=== PATIENT | female | born 1965 | race Caucasian/White ===

== ENCOUNTER 2017-01-05 10:29 | Outpatient (CLI) | payer MEDICAID, MEDICARE ==
[2017-01-05 11:42] LABS: ALT (SGPT) 36 U/L (8-55); AST (SGOT) 47 U/L (5-34); Albumin 3.7 g/dL (3.5-5.0); Alkaline Phosphatase 102 U/L (40-150); Anion Gap 14 mmol/L (10-20); BUN (Urea Nitrogen) 7 mg/dL (9.8-20.1); Bilirubin, Total 0.3 mg/dL (0.2-1.2); Calc. Creatinine Clearance 0 mL/min (70-130); Calcium 9.9 mg/dL (7.8-10.44); Carbon Dioxide 27 mmol/L (22-29); Cardiac Risk 3.6 (Less than 4.5); Chloride 102 mmol/L (98-107); Cholesterol 142 mg/dl (< 200 Desired); Estimated GFR-MDRD 72; Globulin 4.4 g/dL (2.4-3.5); Glucose 94 mg/dL (70-105); HDL Cholesterol 40 mg/dL (>60 Neg Risk); LDL Cholesterol, Calculated 72 mg/dL; Potassium 5.9 mmol/L (3.5-5.1); Protein, Total 8.1 g/dL (6.0-8.3); Sodium 137 mmol/L (136-145); Triglycerides 150 mg/dL (Less than 150)
[2017-01-05 12:06] LABS: Band 1 % (5-11); Eosinophils 11 % (0-10); Hemoglobin 14.5 g/dL (12.0-16.0); Lymphocytes 45 % (21-51); MDiff Complete? YES; Mean Corpuscular HGB CONC 32.6 g/dL (32.0-36.0); Mean Corpuscular Hemoglobin 31.1 pg (27.0-31.0); Mean Corpuscular Volume 95.3 fl (81.0-99.0); Mean Platelet Volume 9.3 fL (7.4-10.4); Monocytes 1 % (0-10); Neutrophil 42 % (42-75); PLT Morphology Comment Appears Increased; Platelet Count 402 thou/uL (130-400); RBC Distribution Width 12.5 % (11.5-14.5); Red Blood Cell (RBC) Count 4.67 mill/uL (4.20-5.40); White Blood Cell (WBC) Count 12.3 thou/uL (4.8-10.8)
== END 2017-01-05 10:30 | disposition home or self-care (01) ==
LOC: MADLABBHPM 10:29
PROVIDERS: ATTEND Family Medicine
DX: Z00.00 Encounter for general adult medical examination without abnormal findings (principal)
CPT/HCPCS: 36415; 80053; 80061; 84443; 85025

== ENCOUNTER 2017-01-12 08:23 | Outpatient (CLI) | payer MEDICARE ==
[2017-01-12 09:29] LABS: Anion Gap 15 mmol/L (10-20); BUN (Urea Nitrogen) 8 mg/dL (9.8-20.1); Calc. Creatinine Clearance 0 mL/min (70-130); Calcium 9.9 mg/dL (7.8-10.44); Carbon Dioxide 25 mmol/L (22-29); Chloride 102 mmol/L (98-107); Estimated GFR-MDRD 65; Glucose 105 mg/dL (70-105); Sodium 137 mmol/L (136-145)
[2017-01-12 10:05] LABS: Band 1 % (5-11); Eosinophils 2 % (0-10); Hemoglobin 14.7 g/dL (12.0-16.0); Lymphocytes 50 % (21-51); MDiff Complete? YES; Mean Corpuscular HGB CONC 33.7 g/dL (32.0-36.0); Mean Corpuscular Volume 94.9 fl (81.0-99.0); Mean Platelet Volume 9.2 fL (7.4-10.4); Monocytes 7 % (0-10); Neutrophil 40 % (42-75); PLT Morphology Comment Appears Increased; Platelet Count 401 thou/uL (130-400); RBC Distribution Width 12.4 % (11.5-14.5); RBC Morphology Normal; White Blood Cell (WBC) Count 14.6 thou/uL (4.8-10.8)
[2017-01-12 17:37] LABS: HIV (1/2) Antibody/Antigen Non-Reactive (NonReactive); HIV 1/2 INDEX 0.19 S/CO (<1.00)
== END 2017-01-12 08:24 | disposition home or self-care (01) ==
LOC: MADLABBHPM 08:23
PROVIDERS: ATTEND Family Medicine
DX: E78.5 Hyperlipidemia, unspecified (principal); D72.829 Elevated white blood cell count, unspecified
CPT/HCPCS: 36415; 80048; 85007; 85027; 85060; 87389

== ENCOUNTER 2017-06-25 11:13 | Outpatient (CLI) | payer MEDICARE, MEDICAID ==
[2017-06-25 11:57] LABS: ALT (SGPT) 43 U/L (8-55); AST (SGOT) 47 U/L (5-34); Albumin 3.7 g/dL (3.5-5.0); Alkaline Phosphatase 165 U/L (40-150); Anion Gap 15 mmol/L (10-20); BUN (Urea Nitrogen) 10 mg/dL (9.8-20.1); Bilirubin, Total 0.5 mg/dL (0.2-1.2); Calc. Creatinine Clearance 0 mL/min (70-130); Calcium 10.2 mg/dL (7.8-10.44); Carbon Dioxide 26 mmol/L (22-29); Chloride 99 mmol/L (98-107); Estimated GFR-MDRD 70; Globulin 4.8 g/dL (2.4-3.5); Glucose 79 mg/dL (70-105); Potassium 4.3 mmol/L (3.5-5.1); Protein, Total 8.5 g/dL (6.0-8.3); Sodium 136 mmol/L (136-145)
[2017-06-25 12:40] LABS: Hemoglobin 13.4 g/dL (12.0-16.0); Mean Corpuscular HGB CONC 31.6 g/dL (32.0-36.0); Mean Platelet Volume 10.8 fL (7.4-10.4); Platelet Count 553 thou/uL (130-400); RBC Distribution Width 12.4 % (11.5-14.5); Red Blood Cell (RBC) Count 4.48 mill/uL (4.20-5.40); White Blood Cell (WBC) Count 14.6 thou/uL (4.8-10.8)
[2017-06-25 12:50] LABS: Band 1 % (5-11); Eosinophils 3 % (0-10); Lymphocytes 45 % (21-51); MDiff Complete? YES; Manual Diff?? YES; Monocytes 4 % (0-10); Neutrophil 42 % (42-75); Reactive Lymphocytes 5 % (0-10)
[2017-06-25 12:51] LABS: Anisocytosis SLIGHT = 6-15 cells (100X) (0-5/hpf); PLT Morphology Comment Appears Increased
== END 2017-06-25 11:14 | disposition home or self-care (01) ==
LOC: MADLABBHPM 11:13
PROVIDERS: ATTEND Family Medicine
DX: B18.2 Chronic viral hepatitis C (principal)
CPT/HCPCS: 36415; 80053; 85025

== ENCOUNTER 2017-06-26 16:02 | Outpatient (CLI) | payer MEDICARE, MEDICAID ==
[~2017-06-26 16:02] MED LIST: Iopamidol 370 76% 100 ML VIAL ONE
--- NOTE | 2017-06-26 20:53 | CT ---
CT OF THE ABDOMEN WITH IV CONTRAST: 06/26/17 INDICATION: History of intermittent epigastric abdominal pain just below the sternum ongoing for three months. COMPARISON: None. FINDINGS: There is surgical harsha involving the upper anterior abdominal wall. There is a small fat containi ng anterior abdominal wall hernia on image 44 of series 2. There is a 6.6 cm mass within the left lower lobe. There is a 1.1 cm epicardial lymph node seen anterior to the right ventricle. There is a 1.4 cm epic ardial lymph node seen adjacent to left ventricular apex. There is a 2.6 cm pericardial cyst along t he right heart border. There is cirrhotic morphology of the liver. The spleen is surgically absent. There are mild varicosi ties within the left upper quadrant of the abdomen and within the paraesophageal region. There are n umerous enlarged lymph nodes within the gastrohepatic and janie hepatis region. One of the largest i s seen within the periportal region measuring 2 cm. The pancreas appears within normal limits. The r ight kidney is malrotated. The left kidney is normal appearing. The adrenal glands are normal appear ing. There is a circumaortic left renal vein. There is moderate calcification involving the abdomina l aorta. The visualized unopacified small and large bowel are within normal limits. There is scatter ed degenerative and osteoarthritic change. IMPRESSION: 1. Left lower lobe mass suspicious for malignancy. 2. Nonspecific enlarged lymph nodes within the epicardial region of the lower thorax, gastrohep atic, periportal and portal hepatis regions. 3. Cirrhotic morphology of the liver. 4. Splenectomy. 5. Would recommend a dedicated CT of the chest, abdomen and pelvis with IV contrast. This would have to occur following a 24 hour wait period as the patient did receive a full contrast bolus. Thi s would provide a full whole body survey to evaluate extent of possible primary and metastatic disea se. This can be performed as an outpatient. POS: [facility]
== END 2017-06-26 16:03 | disposition home or self-care (01) ==
LOC: MADRAD 16:02
PROVIDERS: ATTEND Family Medicine
DX: R10.13 Epigastric pain (principal); R91.8 Other nonspecific abnormal finding of lung field; R59.0 Localized enlarged lymph nodes; K74.60 Unspecified cirrhosis of liver; Z90.49 Acquired absence of other specified parts of digestive tract
CPT/HCPCS: 74160

== ENCOUNTER 2017-06-28 11:16 | Outpatient (CLI) | payer MEDICARE, MEDICAID ==
--- NOTE | 2017-06-28 17:02 | CT ---
CT CHEST WITH CONTRAST CT ABDOMEN WITH CONTRAST CT PELVIS WITH CONTRAST: Date: 06/28/17 HISTORY: Lung mass. COMPARISON: None. FINDINGS: There is a mass in the left lower lobe measuring 7.8 x 5.6 x 6.5 cm with enhancement. There is also a mass in the right upper lobe measuring 1.0 x 2.3 x 1.2 cm with enhancement in lobular border. Ther e is some atelectatic change in the lingula. No pneumothorax. No effusion. There are metastatic lymph nodes in the prevascular space, as well as of the right anterior tracheal region. There is also a metastatic lymph node in the right pericardio phrenic space. Another metastatic lymph node in the left pericardiophrenic space is present. This me asures 1.5 cm. The right pericardiophrenic lymph node measures 2.5 cm. No free intraperitoneal gas or fluid. Mild prominence of the common bile duct measuring 1.5 cm. There are abnormal santos hepatis lymph nodes, as well as anterior perirenal space lymph nodes. Anter ior perirenal space lymph node, series 2, image 62, measures up to 13.0 mm in short axis. Santos hepa tis lymph nodes measures up to 1.7 cm in short axis. Kidneys are unremarkable. No hydronephrosis. Moderate diverticular disease sigmoid colon without act jocelyn inflammation. Fat-containing ventral hernia. No displaced rib fracture. No suspicious lytic or blastic lesions of the skeleton. Evidence of old injury of the posterolateral left 11th rib. IMPRESSION: 1. Findings suggestive of a primary lung malignancy in the left lower lobe, size as above. There is metastatic mediastinal adenopathy, as well as a secondary likely satellite nodule in the right uppe r lobe. There are metastatic lymph nodes also involving the right and left cardiophrenic angles. 2. Abnormally enlarged santos hepatic and anterior pararenal space lymph nodes. These have a differe nt enhancement pattern as the metastatic lymph nodes of the mediastinum. PET CT may be beneficial in this patient. Histologic evaluation of the left lower lobe mass is recommended. Pulmonology and onc ologic consultation recommended. 3. There is a hypodensity of the interpolar anterior cortex right kidney measuring 1.0 cm and fluid attenuation. This is suggestive of a cyst. 4. Mildly nodular contour of the liver suggests cirrhosis. The liver, however, is enlarged. POS: [facility]
== END 2017-06-28 11:17 | disposition home or self-care (01) ==
LOC: MADCT 11:16
PROVIDERS: ATTEND Family Medicine
DX: R91.8 Other nonspecific abnormal finding of lung field (principal); N28.89 Other specified disorders of kidney and ureter; K76.89 Other specified diseases of liver
CPT/HCPCS: 71260; 74177

== ENCOUNTER 2017-08-18 12:45 | Emergency (ER) | payer MEDICARE, MEDICAID ==
[2017-08-18] MEDS ORDERED: Iopamidol 370 76% 125 ML VIAL FS ONE (12:52)
[2017-08-18] MEDS ORDERED: Sodium Chloride 0.9% 100 ML BAG ONE (12:52)
[2017-08-18] MEDS ORDERED: Ketorolac Tromethamine 30 MG/ML VIAL ONE (14:26)
[2017-08-18 14:54] LABS: ALT (SGPT) 67 U/L (8-55); AST (SGOT) 63 U/L (5-34); Albumin 3.4 g/dL (3.5-5.0); Alkaline Phosphatase 204 U/L (40-150); Anion Gap 20 mmol/L (10-20); BUN (Urea Nitrogen) 11 mg/dL (9.8-20.1); Bilirubin, Total 0.5 mg/dL (0.2-1.2); Calc. Creatinine Clearance 0 mL/min (70-130); Calcium 9.7 mg/dL (7.8-10.44); Carbon Dioxide 20 mmol/L (22-29); Chloride 101 mmol/L (98-107); Eosinophils 3 % (0-10); Estimated GFR-MDRD 81; Globulin 5.1 g/dL (2.4-3.5); Glucose 83 mg/dL (70-105); Hemoglobin 12.5 g/dL (12.0-16.0); Lymphocytes 10 % (21-51); MDiff Complete? YES; Mean Corpuscular HGB CONC 32.9 g/dL (32.0-36.0); Mean Corpuscular Hemoglobin 30.4 pg (27.0-31.0); Mean Corpuscular Volume 92.3 fl (81.0-99.0); Mean Platelet Volume 9.7 fL (7.4-10.4); Metamyelocyte 1 % (0-0); Monocytes 4 % (0-10); Myelocyte 1 % (0-0); Neutrophil 60 % (42-75); PLT Morphology Comment Appears Increased; Platelet Count 588 thou/uL (130-400); Potassium 4.5 mmol/L (3.5-5.1); Protein, Total 8.5 g/dL (6.0-8.3); RBC Distribution Width 12.4 % (11.5-14.5); RBC Morphology Normal; Reactive Lymphocytes 21 % (0-10); Red Blood Cell (RBC) Count 4.11 mill/uL (4.20-5.40); Sodium 136 mmol/L (136-145); White Blood Cell (WBC) Count 18.1 thou/uL (4.8-10.8)
[2017-08-18 14:56] LABS: CKMB 0.4 ng/mL (0-6.6); Troponin I Less than 0.010 ng/mL (< 0.028)
--- NOTE | 2017-08-18 15:29 | RAD ---
PA RADIOGRAPH OF CHEST AP AND OBLIQUE VIEWS OF LEFT RIBS: Date: 08/18/17 HISTORY: Chest and rib pain. FINDINGS: PA radiograph of the chest demonstrates a lobular mass in the left lung base, unchanged since the pre vious comparison radiograph from approximately 9 days earlier. No evidence of hemo or pneumothorax se en. AP and oblique views left ribs demonstrate no evidence of left rib fractures. No obvious lytic rib le sions seen. IMPRESSION: Left lung base mass. POS: [facility]
--- NOTE | 2017-08-18 16:13 | CT ---
CONTRAST ENHANCED CTA CHEST: Date: 08/18/17 HISTORY: 52-year-old with history of lung mass, dyspnea. TECHNIQUE: Contrast enhanced CTA of chest is performed. 2D and 3D reconstruction images performed on an [employer] 3D workstation. COMPARISON: 06/28/17. FINDINGS: Right upper lobe mass, as well as left lower lobe masses are stable and again visualized. There is an area of scarring or patchy density in the left upper lobe posterior lingular region. This is also st able. Coronary artery calcifications seen. Mediastinum demonstrates a right paratracheal mass measuri ng 2.1 x 2.7 cm. This was present on the patient's previous CT from June. No evidence of filling defects seen to suggest pulmonary emboli. There is some asymmetric enlargement of the left hepatic lobe concerning for possible liver metastati c disease. There is also some fullness seen in the caudate lobe of the liver. There also appears to be some nodular enhancement along the left posterior aspect of the diaphragm. IMPRESSION: 1. Multiple areas of pretracheal and anterior mediastinal metastatic lesions. 2. Multiple pulmonary parenchymal lesions. 3. No evidence of pulmonary emboli. POS: [facility]
== END 2017-08-18 16:15 | disposition home or self-care (01) ==
LOC: MADERS 12:45
DX: S29.011A Strain of muscle and tendon of front wall of thorax, initial encounter (principal); X58.XXXA Exposure to other specified factors, initial encounter
CPT/HCPCS: 71275; 80053; 82553; 83880; 84484; 85025; 85379; 93005; 96374; J1885; J7050

== ENCOUNTER 2017-09-26 17:21 | Emergency (ER) | payer MEDICARE, OTHER ==
[2017-09-26 18:06] LABS: Anion Gap 21 mmol/L (10-20); BUN (Urea Nitrogen) 10 mg/dL (9.8-20.1); CK (CPK) 21 U/L (29-168); Calc. Creatinine Clearance 0 mL/min (70-130); Calcium 9.4 mg/dL (7.8-10.44); Carbon Dioxide 17 mmol/L (22-29); Chloride 99 mmol/L (98-107); Estimated GFR-MDRD 80; Glucose 99 mg/dL (70-105); Potassium 4.3 mmol/L (3.5-5.1); Sodium 133 mmol/L (136-145)
[2017-09-26 18:10] LABS: Bilirubin Negative (Negative); Blood, Urine Trace (Negative); Glucose, Urine (Dipstick) Negative (Negative); Leukocyte Trace (Negative); Nitrite Negative (Negative); Protein, Urine (Dipstick) Negative (Neg-Trace); Urobilinogen 0.2 mg/dL (0.2-1.0)
[2017-09-26 18:12] LABS: Anisocytosis SLIGHT = 6-15 cells (100X) (0-5/hpf); Eosinophils 4 % (0-10); Hemoglobin 11.3 g/dL (12.0-16.0); Large Platelets SLIGHT; Lymphocytes 47 % (21-51); MDiff Complete? YES; Mean Corpuscular HGB CONC 32.8 g/dL (32.0-36.0); Mean Corpuscular Hemoglobin 30.5 pg (27.0-31.0); Mean Corpuscular Volume 92.9 fl (81.0-99.0); Mean Platelet Volume 11.5 fL (7.4-10.4); Monocytes 2 % (0-10); Neutrophil 47 % (42-75); PLT Morphology Comment Appears Increased; Platelet Count 550 thou/uL (130-400); RBC Distribution Width 12.7 % (11.5-14.5); White Blood Cell (WBC) Count 16.4 thou/uL (4.8-10.8)
[2017-09-26 18:12] LABS: Clarity Hazy (Clear)
[2017-09-26 18:13] LABS: Specific Gravity, Urine 1.008 (1.002-1.036)
[2017-09-26 18:16] LABS: Bacteria/HPF 1+ HPF (None Seen); RBC/HPF 0-3 HPF (0-3); Squamous Epithelial 0-3 HPF (0-3); WBC/HPF 0-3 HPF (0-3)
== END 2017-09-26 18:25 | disposition home or self-care (01) ==
LOC: MADERS 17:21
DX: I10 Essential (primary) hypertension (principal); Z71.1 Person with feared health complaint in whom no diagnosis is made; Z79.899 Other long term (current) drug therapy
CPT/HCPCS: 81003; 81015; 82550; 85025; 87086; 93005

== ENCOUNTER 2017-11-08 08:02 | Outpatient (CLI) | payer MEDICARE, OTHER ==
--- NOTE | 2017-11-08 09:14 | ULT ---
ULTRASOUND ABDOMEN: HISTORY: Upper abdominal mass. COMPARISON: PET CT 11/01/17. FINDINGS: The right kidney measures 10.9 x 3.7 x 5.6 cm without mass, hydronephrosis, or abnormal calcification s. The left kidney measures 10.5 x 4.2 x 4.6 cm without mass, hydronephrosis, or abnormal calcificat ions. Mild increased hepatic echotexture. No cholelithiasis. Common bile duct not well seen. IMPRESSION: 1. Mild increased hepatic echotexture suggests steatosis. 2. Normal appearance of the gallbladder. 3. Common bile duct not well visualized, although according to the technologist's notes measures les s than 3 mm. POS: [facility]
== END 2017-11-08 08:03 | disposition home or self-care (01) ==
LOC: MADULT 08:02
PROVIDERS: ATTEND Family Medicine
DX: R19.09 Other intra-abdominal and pelvic swelling, mass and lump (principal); R93.2 Abnormal findings on diagnostic imaging of liver and biliary tract
CPT/HCPCS: 76700

== ENCOUNTER 2017-12-18 11:50 | Outpatient (CLI) | payer MEDICARE, OTHER ==
[2017-12-18 12:43] LABS: ALT (SGPT) 45 U/L (8-55); AST (SGOT) 51 U/L (5-34); Albumin 3.5 g/dL (3.5-5.0); Alkaline Phosphatase 302 U/L (40-150); Anion Gap 18 mmol/L (10-20); BUN (Urea Nitrogen) 12 mg/dL (9.8-20.1); Bilirubin, Total 0.5 mg/dL (0.2-1.2); Calc. Creatinine Clearance 0 mL/min (70-130); Calcium 10.1 mg/dL (7.8-10.44); Chloride 103 mmol/L (98-107); Estimated GFR-MDRD 68; Globulin 5.4 g/dL (2.4-3.5); Glucose 75 mg/dL (70-105); Potassium 5.8 mmol/L (3.5-5.1); Protein, Total 8.9 g/dL (6.0-8.3); Sodium 137 mmol/L (136-145); Uric Acid 7.1 mg/dL (2.6-6.0)
[2017-12-18 13:13] LABS: Carbon Dioxide 22 mmol/L (22-29)
== END 2017-12-18 11:51 | disposition home or self-care (01) ==
LOC: MADLAB 11:50
PROVIDERS: ATTEND Internal Medicine Hematology & Oncology
DX: C34.12 Malignant neoplasm of upper lobe, left bronchus or lung (principal)
CPT/HCPCS: 36415; 80053; 83615; 84550

== ENCOUNTER 2017-12-20 09:32 | Outpatient (CLI) | payer MEDICARE, MEDICAID ==
--- NOTE | 2017-12-20 11:53 | CT ---
CT ABDOMEN AND PELVIS WITH ORAL AND IV CONTRAST: Date: 12/20/17 HISTORY: Lung cancer. Left upper quadrant mass. FINDINGS: Comparison made with exams of 06/28/17 and 06/26/17. There is mild residual density seen in the region of the left lower lobe lung mass noted on the previ ous studies. The right-sided pericardial cyst along the right heart border is stable. Right pericardi ophrenic and left pericardiophrenic lymph nodes are again seen and stable, measuring about 1.5 cm, re spectively. The patient is post splenectomy. Mild varicosities are seen in the left upper quadrant. Stable enlarg ement of the left lobe of the liver. No hepatic mass is seen. Mild nodular contour of the liver is lawrence ggestive of cirrhosis. The liver is diffusely enlarged. A small amount of fluid is seen along the sup erior anterior surface of the liver on the right. No calcified gallstones are seen. The common bile d uct measures about 1.0 cm in diameter. The pancreas, adrenal glands, and left kidney are normal. A 12 .0 mm right renal cyst is stable. The 12.0 mm janie hepatis lymph node, 16.0 mm portocaval lymph node, and 12.0 mm aortocaval lymph nod e are stable. No free air or free fluid is seen in the abdomen or pelvis. Vascular calcifications are present without evidence of aneurysmal dilatation of the abdominal aorta. There are degenerative celestino nges in the spine. The small bowel loops are not abnormally dilated. There is sigmoid diverticulosis. Postop changes in the anterior abdominal wall are again seen. Small, fat-containing ventral hernia, a nd small, fat-containing left inguinal hernia are again noted. IMPRESSION: Significant interval improvement in the left lower lobe lung mass, otherwise stable exam. POS: [facility]
== END 2017-12-20 09:33 | disposition home or self-care (01) ==
LOC: MADCT 09:32
PROVIDERS: ATTEND Family Medicine
DX: R19.02 Left upper quadrant abdominal swelling, mass and lump (principal); R91.8 Other nonspecific abnormal finding of lung field
CPT/HCPCS: 74177

== ENCOUNTER 2018-02-05 13:50 | Outpatient (CLI) | payer MEDICARE, MEDICAID ==
[2018-02-05 14:49] LABS: Hemoglobin 8.5 g/dL (12.0-16.0); Large Platelets SLIGHT; Lymphocytes 48 % (21-51); MDiff Complete? YES; Mean Corpuscular HGB CONC 31.8 g/dL (32.0-36.0); Mean Corpuscular Hemoglobin 26.7 pg (27.0-31.0); Mean Corpuscular Volume 83.9 fl (81.0-99.0); Mean Platelet Volume 10.9 fL (7.4-10.4); Monocytes 3 % (0-10); Neutrophil 46 % (42-75); PLT Morphology Comment Appears Increased; Platelet Count 672 thou/uL (130-400); Reactive Lymphocytes 3 % (0-10); Red Blood Cell (RBC) Count 3.17 mill/uL (4.20-5.40); White Blood Cell (WBC) Count 14.6 thou/uL (4.8-10.8)
== END 2018-02-05 13:51 | disposition home or self-care (01) ==
LOC: MADLAB 13:50
PROVIDERS: ATTEND Family Medicine
DX: D64.9 Anemia, unspecified (principal)
CPT/HCPCS: 36415; 85025

== ENCOUNTER 2018-02-12 10:43 | Outpatient (CLI) | payer MEDICARE, OTHER ==
[2018-02-12 12:24] LABS: Hemoglobin 8.2 g/dL (12.0-16.0); Lymphocytes 30 % (21-51); MDiff Complete? YES; Mean Corpuscular HGB CONC 31.1 g/dL (32.0-36.0); Mean Corpuscular Hemoglobin 25.7 pg (27.0-31.0); Mean Corpuscular Volume 82.7 fl (81.0-99.0); Monocytes 3 % (0-10); Neutrophil 64 % (42-75); Platelet Count 693 thou/uL (130-400); RBC Distribution Width 14.8 % (11.5-14.5); Reactive Lymphocytes 3 % (0-10); Red Blood Cell (RBC) Count 3.18 mill/uL (4.20-5.40); White Blood Cell (WBC) Count 16.1 thou/uL (4.8-10.8)
== END 2018-02-12 10:44 | disposition home or self-care (01) ==
LOC: MADLABBHPM 10:43
PROVIDERS: ATTEND Family Medicine
DX: D64.9 Anemia, unspecified (principal)
CPT/HCPCS: 36415; 85025

== ENCOUNTER 2018-03-08 11:26 | Outpatient (CLI) | payer MEDICARE, MEDICAID ==
[2018-03-08 12:52] LABS: Band 1 % (5-11); Eosinophils 2 % (0-10); Hemoglobin 8.1 g/dL (12.0-16.0); Lymphocytes 31 % (21-51); MDiff Complete? YES; Mean Corpuscular HGB CONC 30.3 g/dL (32.0-36.0); Mean Corpuscular Hemoglobin 25.2 pg (27.0-31.0); Mean Corpuscular Volume 83.2 fL (78.0-98.0); Mean Platelet Volume 10.5 fL (7.4-10.4); Monocytes 3 % (0-10); Neutrophil 63 % (42-75); PLT Morphology Comment Appears Increased; Platelet Count 620 thou/uL (130-400); RBC Distribution Width 17.6 % (11.5-14.5); Red Blood Cell (RBC) Count 3.21 mill/uL (4.20-5.40)
[2018-03-08 13:40] LABS: White Blood Cell (WBC) Count 12.9 thou/uL (4.8-10.8)
== END 2018-03-08 11:27 | disposition home or self-care (01) ==
LOC: MADLABBHPM 11:26
PROVIDERS: ATTEND Family Medicine
DX: D64.9 Anemia, unspecified (principal); K74.69 Other cirrhosis of liver
CPT/HCPCS: 36415; 82140; 85025

== ENCOUNTER 2018-03-21 18:33 | Emergency (ER) | payer MEDICARE, MEDICAID ==
[2018-03-21 19:29] LABS: Bilirubin Negative (Negative); Blood, Urine Negative (Negative); Glucose, Urine (Dipstick) Negative (Negative); Leukocyte Negative (Negative); Nitrite Negative (Negative); Protein, Urine (Dipstick) 100 mg/dL (Neg-Trace); pH, Urine 7.5 (5.0-9.0)
[2018-03-21 19:32] LABS: Clarity Hazy (Clear)
[2018-03-21 19:33] LABS: ALT (SGPT) 35 U/L (8-55); AST (SGOT) 57 U/L (5-34); Albumin 2.8 g/dL (3.5-5.0); Alkaline Phosphatase 261 U/L (40-150); Anion Gap 20 mmol/L (10-20); BUN (Urea Nitrogen) 11 mg/dL (9.8-20.1); Bilirubin, Total 0.6 mg/dL (0.2-1.2); Calc. Creatinine Clearance 0 mL/min (70-130); Calcium 9.6 mg/dL (7.8-10.44); Carbon Dioxide 18 mmol/L (22-29); Chloride 100 mmol/L (98-107); Estimated GFR-MDRD 74; Globulin 5.6 g/dL (2.4-3.5); Glucose 118 mg/dL (70-105); Potassium 4.8 mmol/L (3.5-5.1); Protein, Total 8.4 g/dL (6.0-8.3); Sodium 133 mmol/L (136-145)
[2018-03-21 19:38] LABS: Bacteria/HPF 2+ HPF (None Seen); RBC/HPF 0-3 HPF (0-3); WBC/HPF 0-3 HPF (0-3)
[2018-03-21 19:46] LABS: Anisocytosis MODERATE=16-30 cells (100X) (0-5/hpf); Band 3 % (5-11); Eosinophils 4 % (0-10); Giant Platelets SLIGHT; Hemoglobin 6.5 g/dL (12.0-16.0); Hypochromia MODERATE=16-30 cells (100X) (0-5/hpf); Large Platelets SLIGHT; Lymphocytes 35 % (21-51); MDiff Complete? YES; Mean Corpuscular HGB CONC 30.5 g/dL (32.0-36.0); Mean Corpuscular Hemoglobin 24.5 pg (27.0-31.0); Mean Corpuscular Volume 80.1 fL (78.0-98.0); Monocytes 5 % (0-10); Neutrophil 54 % (42-75); PLT Morphology Comment Appears Increased; Platelet Count 617 thou/uL (130-400); RBC Distribution Width 17.8 % (11.5-14.5); Red Blood Cell (RBC) Count 2.67 mill/uL (4.20-5.40); White Blood Cell (WBC) Count 16.6 thou/uL (4.8-10.8)
--- NOTE | 2018-03-21 22:39 | CT ---
CT ABDOMEN WITH CONTRAST CT PELVIS WITH CONTRAST 03/21/18 HISTORY: Bleeding ulcer. Dark stools. Lung cancer. COMPARISON: 02/01/18, 12/20/17. FINDINGS: ABDOMEN CT: Redemonstration of hypodensities along the pericardiac region. Redemonstration of a nodule in the lef t lower lobe currently measuring 1.8 x 1.7 cm (previously measuring 2.5 x 1.9 cm. There appear to be stable pericardial lymphadenopathy. Hepatomegaly and cirrhotic changes are redemon strated. Diminutive spleen is once again noted. Varices are identified. Portal vein appears to be pat ent. Gallbladder is unremarkable. There is interval development of perihepatic fluid. The gastrohepatic and peripancreatic lymph nodes are once again demonstrated. Additionally, there keny ears to be some nodularity adjacent to the spleen. Findings may represent varices. Mesenteric seeding of tumor cannot be excluded. There is symmetric enhancement of the kidneys. No obstructive uropathy. There is stranding of the abdominal mesentery without a focal mass or significant collection of fluid . No free air. There is edema involving the subcutaneous fat. Limited evaluation of the alimentary canal by the lack of oral contrast. Gastric mucosa, duodenum, an d some small bowel loops are unremarkable. Though, there is no obvious bowel obstruction, there is a segment of small bowel that is slightly prominent. Focal ileus in his region cannot be excluded. Con tinued surveillance is recommended. Ileocecal junction is normal. Normal caliber appendix. Scattered fecal material in a nondistended, nondilated colon. No obvious colonic based masses or mucosal abnorm ality. Evaluation of the sigmoid colon is limited. There is mild mucosal thickening likely due to re mote gouts of diverticulitis. Currently, there is no evidence of inflammation. Diverticulosis is note d. PELVIC CT: 1. The uterus is surgically absent. No mass, lymphadenopathy, free air or free fluid. The urinar y bladder is unremarkable. 2. Cirrhosis with hepatomegaly and varices. 3. Persistent abdominal lymphadenopathy. There appears to be soft tissues in the perisplenic reg ions which may represent varicosities versus omental seeding. 4. No evidence of high grade small bowel obstruction. There is a focal loop of small bowel which is slightly prominent and may represent a partial obstructive process versus an ileus. Continued lawrence rveillance is recommended. 5. Mucosal thickening of the sigmoid likely due to inadequate distention. Given the patient's hi story, colonoscopy can be performed. POS: [facility]
== END 2018-03-21 21:47 | disposition short-term general hospital (02) ==
LOC: MADERS 18:33
DX: K76.89 Other specified diseases of liver (principal); C34.90 Malignant neoplasm of unspecified part of unspecified bronchus or lung; D63.0 Anemia in neoplastic disease; E66.9 Obesity, unspecified; F41.9 Anxiety disorder, unspecified; F32.9 Major depressive disorder, single episode, unspecified; Z79.82 Long term (current) use of aspirin; Z79.899 Other long term (current) drug therapy; Z79.891 Long term (current) use of opiate analgesic
CPT/HCPCS: 74177; 80053; 81003; 81015; 82274; 85025

== ENCOUNTER 2018-04-08 12:05 | Emergency (ER) | payer MEDICARE, MEDICAID ==
[~2018-04-08 12:05] MED LIST changes: -Iopamidol 370 76% 100 ML VIAL ONE; +Sodium Chloride 0.9% 1,000 ML BAG ONE; +Sodium Chloride 0.9% 100 ML BAG ONE
[2018-04-08 12:39] LABS: Bilirubin Moderate (Negative); Blood, Urine Negative (Negative); Clarity Slightly Cloudy (Clear); Glucose, Urine (Dipstick) Negative (Negative); Leukocyte Negative (Negative); Nitrite Negative (Negative); Protein, Urine (Dipstick) 100 mg/dL (Neg-Trace); Specific Gravity, Urine 1.025 (1.005-1.030)
[2018-04-08 12:52] LABS: Bacteria/HPF Rare-Few HPF (None Seen); RBC/HPF 0-3 HPF (0-3); Squamous Epithelial 21-50 HPF (0-3)
[2018-04-08 12:53] LABS: Crystals/HPF 2+ AMORPH URATES HPF (Negative); Hyaline Casts/LPF 7-10 HYALINE CAST LPF (0-3 Hyaline)
[2018-04-08 13:00] LABS: Anion Gap 17 mmol/L (10-20); BUN (Urea Nitrogen) 14 mg/dL (9.8-20.1); Calc. Creatinine Clearance 0 mL/min (70-130); Carbon Dioxide 17 mmol/L (22-29); Chloride 99 mmol/L (98-107); Estimated GFR-MDRD 71; Glucose 125 mg/dL (70-105); Potassium 4.8 mmol/L (3.5-5.1); Sodium 128 mmol/L (136-145)
[2018-04-08] MEDS ORDERED: Fentanyl 100 MCG/2 ML VIAL ONE (13:00)
[2018-04-08] MEDS ORDERED: Famotidine In NaCl 20 mg/50 ml Premix Bag ONE (13:00)
[2018-04-08] MEDS ORDERED: Ondansetron HCl/PF 4 MG/2 ML Vial ONE ×2 (13:00)
[2018-04-08 13:06] LABS: CKMB 0.3 ng/mL (0-6.6)
[2018-04-08 13:08] LABS: #Neutrophils 8.9 thou/uL (1.40-6.50); %Basophils 1.2 % (0.0-1.0); %Eosinophils 1.4 % (0.0-10.0); %Lymphocytes 25.7 % (21.0-51.0); %Monocytes 5.9 % (0.0-10.0); %Neutrophils 65.8 % (42.0-75.0); Anisocytosis MODERATE=16-30 cells (100X) (0-5/hpf); Band 2 % (5-11); Eosinophils 2 % (0-10); Hemoglobin 6.7 g/dL (12.0-16.0); Large Platelets SLIGHT; Lymphocytes 19 % (21-51); MDiff Complete? YES; Mean Corpuscular HGB CONC 30.6 g/dL (32.0-36.0); Mean Corpuscular Hemoglobin 26.3 pg (27.0-31.0); Mean Corpuscular Volume 86.1 fL (78.0-98.0); Mean Platelet Volume 9.8 fL (7.4-10.4); Monocytes 7 % (0-10); Neutrophil 70 % (42-75); PLT Morphology Comment Appears Increased; Platelet Count 749 thou/uL (130-400); RBC Distribution Width 18.7 % (11.5-14.5); Red Blood Cell (RBC) Count 2.52 mill/uL (4.20-5.40); White Blood Cell (WBC) Count 13.5 thou/uL (4.8-10.8)
[2018-04-08] MEDS ORDERED: cefTRIAXone\\ROCEPHIN 2 GM VIAL ONE (13:35)
--- NOTE | 2018-04-08 14:52 | RAD ---
FRONTAL RADIOGRAPH CHEST UPRIGHT AND SUPINE FRONTAL IMAGING OF ABDOMEN AND PELVIS: DATE: 04/08/18. COMPARISON: Frontal radiograph chest 03/21/18. HISTORY: Pain. FINDINGS: Frontal radiograph chest demonstrates a CT injectable right-sided Port-A-Cath. There is a subtle gerard ear density with a distal oval hyperdensity extending below the reservoir which suggests that this ma y be on the basis of a Cadena needle and associated tubing. There is increased linear interstitial de nsity noted throughout both lungs, right greater than left. There is a nodular density measuring 1.2 cm in transverse dimension, as seen on prior chest radiograp h seen on the prior chest CT performed 08/18/17. There are asymmetric increased linear densities noted in the right lung base which suggests volume lo ss. Upright imaging demonstrates no free intraperitoneal air. There is a generalized paucity of bowel ga s noted. Evaluation of the bowel gas pattern is limited secondary to paucity of bowel gas and patien t body habitus. No gas-filled dilated small bowel is seen. Fluid-filled small bowel and/or ascites could have this appearance. IMPRESSION: 1. Stable pulmonary nodule in right upper lobe. 2. No evidence for free intraperitoneal air. Paucity of bowel gas limits detailed assessment of the bowel gas pattern. Increased density may signify fluid-filled bowel, ascites, or may simply be on t he basis of patient body habitus. Hepatomegaly is a possibility as well. POS: [facility]
== END 2018-04-08 14:34 | disposition short-term general hospital (02) ==
LOC: MADERS 12:05
DX: A41.9 Sepsis, unspecified organism (principal); D64.9 Anemia, unspecified; C34.90 Malignant neoplasm of unspecified part of unspecified bronchus or lung; R18.0 Malignant ascites; E66.9 Obesity, unspecified; F41.9 Anxiety disorder, unspecified; F32.9 Major depressive disorder, single episode, unspecified; Z79.899 Other long term (current) drug therapy; Z79.82 Long term (current) use of aspirin; F17.290 Nicotine dependence, other tobacco product, uncomplicated
CPT/HCPCS: 36415; 74022; 80048; 81003; 81015; 82150; 82553; 83605; 84484; 85025; 87040; 93005; 96365; 96367; 96375; J0696; J2405; J3010; J3370; J7050

== ENCOUNTER 2018-04-11 11:35 | Outpatient (CLI) | payer MEDICARE, MEDICAID ==
[2018-04-11 12:22] LABS: Anion Gap 16 mmol/L (10-20); BUN (Urea Nitrogen) 11 mg/dL (9.8-20.1); Calc. Creatinine Clearance 0 mL/min (70-130); Carbon Dioxide 21 mmol/L (22-29); Chloride 102 mmol/L (98-107); Estimated GFR-MDRD 78; Glucose 102 mg/dL (70-105); Potassium 4.7 mmol/L (3.5-5.1); Sodium 134 mmol/L (136-145)
[2018-04-11 13:08] LABS: #Basophils 0.1 thou/uL (0.0-0.2); #Eosinphils 0.3 thou/uL (0.0-0.7); #Lymphocytes 3.5 thou/uL (1.20-3.40); #Monocytes 0.4 thou/uL (0.11-0.59); #Neutrophils 6.1 thou/uL (1.40-6.50); %Basophils 0.6 % (0.0-1.0); %Eosinophils 2.7 % (0.0-10.0); %Lymphocytes 34.1 % (21.0-51.0); %Monocytes 3.4 % (0.0-10.0); %Neutrophils 59.3 % (42.0-75.0); Anisocytosis SLIGHT = 6-15 cells (100X) (0-5/hpf); Giant Platelets SLIGHT; Hemoglobin 7.3 g/dL (12.0-16.0); Hypochromia MODERATE=16-30 cells (100X) (0-5/hpf); Lymphocytes 29 % (21-51); MDiff Complete? YES; Mean Corpuscular HGB CONC 32.1 g/dL (32.0-36.0); Mean Corpuscular Hemoglobin 27.3 pg (27.0-31.0); Mean Corpuscular Volume 85.1 fL (78.0-98.0); Mean Platelet Volume 9.3 fL (7.4-10.4); Monocytes 2 % (0-10); Neutrophil 69 % (42-75); PLT Morphology Comment Appears Increased; Platelet Count 704 thou/uL (130-400); RBC Distribution Width 17.1 % (11.5-14.5); Red Blood Cell (RBC) Count 2.67 mill/uL (4.20-5.40); Target Cells SLIGHT = 2-5 cells (100X) (0-1/hpf); White Blood Cell (WBC) Count 10.4 thou/uL (4.8-10.8)
== END 2018-04-11 11:36 | disposition home or self-care (01) ==
LOC: MADLABBHPM 11:35
PROVIDERS: ATTEND Family Medicine
DX: K74.69 Other cirrhosis of liver (principal); D64.9 Anemia, unspecified
CPT/HCPCS: 36415; 80048; 85025

== ENCOUNTER 2018-05-17 17:47 | Inpatient (IN) | payer MEDICARE, MEDICAID ==
[2018-05-17] MEDS ORDERED: Lubiprostone 8 MCG CAP PO PRN (22:14)
[2018-05-17] MEDS ORDERED: ALPRAZolam 0.5 MG TAB PO SCH (22:15)
[2018-05-17] MEDS ORDERED: Cyclobenzaprine 10 MG TAB PO SCH (22:15)
[2018-05-17] MEDS ORDERED: Zolpidem Tartrate 5 MG TAB PO SCH (22:15)
[2018-05-17] MEDS ORDERED: Nystatin Powder 15 GM BOT TOP SCH (22:15)
[2018-05-17] MEDS ORDERED: Amitriptyline HCl 25 MG TAB PO SCH (22:15)
[2018-05-17] MEDS ORDERED: Cyanocobalamin (Vitamin B-12) 1,000 MCG TAB PO SCH (22:15)
[2018-05-17] MEDS ORDERED: Ondansetron ODT 4 MG TAB PO PRN (22:39)
[2018-05-18 05:42] LABS: ALT (SGPT) 32 U/L (8-55); AST (SGOT) 60 U/L (5-34); Albumin 1.9 g/dL (3.5-5.0); Alkaline Phosphatase 183 U/L (40-150); Anion Gap 16 mmol/L (10-20); BUN (Urea Nitrogen) 22 mg/dL (9.8-20.1); Bilirubin, Total 2.2 mg/dL (0.2-1.2); Calc. Creatinine Clearance 109 mL/min (70-130); Calcium 9.1 mg/dL (7.8-10.44); Carbon Dioxide 28 mmol/L (22-29); Chloride 97 mmol/L (98-107); Estimated GFR-MDRD 65; Glucose 98 mg/dL (70-105); Potassium 3.8 mmol/L (3.5-5.1); Protein, Total 6.9 g/dL (6.0-8.3); Sodium 137 mmol/L (136-145)
[2018-05-18] MEDS: Levothyroxine Sodium 25 MCG TAB PO SCH (05:55)
[2018-05-18 06:12] LABS: Eosinophils 1 % (0-10); Giant Platelets SLIGHT; Hypochromia MODERATE=16-30 cells (100X) (0-5/hpf); Lymphocytes 21 % (21-51); MDiff Complete? YES; Macrocytosis SLIGHT = 6-15 cells (100X) (0-5/hpf); Mean Corpuscular HGB CONC 32.6 g/dL (32.0-36.0); Mean Corpuscular Hemoglobin 27.5 pg (27.0-31.0); Mean Corpuscular Volume 84.4 fL (78.0-98.0); Mean Platelet Volume 11.4 fL (7.4-10.4); Microcytosis SLIGHT = 6-15 cells (100X) (0-5/hpf); Monocytes 5 % (0-10); Neutrophil 69 % (42-75); PLT Morphology Comment Appears Adequate; Platelet Count 530 thou/uL (130-400); RBC Distribution Width 19.1 % (11.5-14.5); RBC Morphology Abnormal; Reactive Lymphocytes 4 % (0-10); Target Cells MODERATE= 6-15 cells (100X) (0-1/hpf)
[2018-05-18 06:14] LABS: White Blood Cell (WBC) Count 13.4 thou/uL (4.8-10.8)
[2018-05-18 06:15] LABS: #Basophils 0.7 thou/uL (0.0-0.2); #Eosinphils 0.3 thou/uL (0.0-0.7); #Lymphocytes 6.9 thou/uL (1.20-3.40); #Monocytes 0.5 thou/uL (0.11-0.59); %Basophils 5.4 % (0.0-1.0); %Eosinophils 2.1 % (0.0-10.0); %Lymphocytes 51.5 % (21.0-51.0); %Monocytes 3.5 % (0.0-10.0); %Neutrophils 37.6 % (42.0-75.0); Manual Diff?? YES
[2018-05-18] MEDS: HYDROcodone/Acetaminophen 10/325 mg Tablet PO PRN ×3 (06:20→22:20)
[2018-05-18] MEDS: Furosemide 40 MG TAB PO SCH (07:40)
[2018-05-18] MEDS: Ferrous Sulfate 325 MG TAB PO SCH ×2 (07:40→17:10)
[2018-05-18] MEDS: ALPRAZolam 0.5 MG TAB PO SCH ×2 (09:33→20:52)
[2018-05-18] MEDS: Cyclobenzaprine 10 MG TAB PO SCH ×3 (09:34→20:53)
[2018-05-18] MEDS: Nystatin Powder 15 GM BOT TOP SCH ×2 (09:34→22:19)
[2018-05-18] MEDS: Polyethylene Glycol 3350 17 GM Packet PO SCH (09:38)
--- NOTE | 2018-05-18 13:17 | HP ---
DATE OF ADMISSION: 05/17/2018 ADMITTING PHYSICIAN: Skylar Parry MD PRIMARY CARE PHYSICIAN: Joceline Calles DO REASON FOR ADMISSION: For skilled rehabilitation at [facility] swing bed, status post severe anemia, diastolic congestive heart failure, and status post left intertrochanteric fracture with open reduction and internal fixation. HISTORY OF PRESENT ILLNESS: Ms. Crawford is a 53-year-old female with stage 4 lung cancer, severe anemia, congestive heart failure, and hepatitis C. The patient presented to the emergency room after she had recently been discharged from the hospital from [facility] within 2 hours. The patient presented back to the hospital with severe shortness of breath and lower extremity edema, physical debility, unable to walk. She was experiencing a lot of shortness of breath with exertion. She says she had put on 30 pounds since the last time she left the hospital. The patient was subsequently admitted for severe iron deficiency anemia, hyponatremia, congestive heart failure on 05/04/2018. During hospitalization, the patient was diuresed with IV Lasix. She was followed by hand twister, Dr. Daniels; grocery sacker, Dr. Zamudio. She unfortunately, sustained a fall where she had a left intertrochanteric fracture. The patient underwent ORIF of that, 05/07/2018, by orthopedic doctor, Dr. Chong. The patient does have a history of stage 4 lung cancer and she is not a candidate for Keytruda any more. She does have chronic anemia, and during hospitalization, fecal occult blood was positive. She was also noted to have nosebleeds. The patient was started on IV iron therapy, and subsequently, on day of discharge given 1 pack of PRBC. Due to severe hyponatremia on the time of admission. She was seen by casualty insurance claim adjuster, Dr. Schultz, and she was placed on fluid restriction and started on tolvaptan, which helped with this. By day of discharge, her sodium had normalized and was back at 134. Due to aggressive diuresis, the patient sustained acute renal insufficiency, medications were readjusted, IV Lasix was changed to oral Lasix at a lower dose and renal function was subsequently improving. The patient does have chronic pain. She is on [place] 3 times a day, and, during hospitalization, fentanyl patch 50 mcg q.72 hours was added. During hospitalization, the patient's admission was also complicated by urinary retention. She does have a Ryan as she is tolerating this well. Upon evaluation prior to discharge, the patient was noted to be physically deconditioned. She lives in the home with father and the decision was made to transfer to skilled rehabilitation, and subsequently, possible hospice admission. The patient was seen by palliative care in the hospital, and she had declined hospice then, but according to Dr. Calles, her PCP, she would have to talk with her and see if she is willing to go with this. Upon evaluation of patient today, she was excited to be in facility. She is very deconditioned. She understands she is meant to get some physical therapy in facility and get stronger prior to discharge back to her home. She denies any pain. She denies any current shortness of breath, any chest pain, or any distress. The patient does have +3 bilateral edema up to her knees, but she states this is much better compared to while in the hospital in [place]. PAST MEDICAL HISTORY: Congestive diastolic heart failure with an EF of 50%-55% ; severe anemia; stage 4 squamous cell lung cancer; hepatitis C; severe massive hepatomegaly; unknown etiology; chronic pain. PAST SURGICAL HISTORY: Left knee surgery, splenectomy, tonsillectomy, hysterectomy, colonoscopy, and now left femur surgery. PSYCHIATRIC HISTORY: Anxiety with depression. SOCIAL HISTORY: The patient is a former tobacco user, quit less than 10 years ago. She currently uses E-cigarettes. The patient denies alcohol use. She denies any illicit drug use. ALLERGIES: No known drug allergies. CODE STATUS: The patient is a DNR. MEDICATIONS: Xanax 1 mg b.i.d., amitriptyline 100 at bedtime, vitamin D3 2000 p.o. at bedtime, Flexeril 10 mg t.i.d., fentanyl patch 50 mcg q.72 hours, ferrous sulfate 325 b.i.d., Lasix 40 mg daily, Synthroid 25 daily, Amitiza 24 mcg b.i.d., Ambien 10 at bedtime, MiraLax 17 grams daily. REVIEW OF SYSTEMS: Significant for shortness of breath, bilateral lower extremity edema, generalized weakness, otherwise as documented in H and P. All other systems were reviewed and are negative. PHYSICAL EXAMINATION: VITAL SIGNS: Temperature 98.1, pulse 91, respirations 20, O2 sat 96% on 2 liters nasal cannula, blood pressure 128/61. GENERAL: Patient is alert, awake, oriented x3. Healthy-appearing female, in no apparent distress, lying comfortably in bed. HEENT: Normocephalic, atraumatic. Pupils are equal, round, and reactive to light. Extraocular movements intact. No scleral icterus. NECK: Supple. No JVD is appreciated. Trachea is midline. RESPIRATORY: Clear to auscultation bilaterally. No wheezing, no rales, no rhonchi. CARDIOVASCULAR: Positive for S1 and S2, regular rate and rhythm No murmurs, gallops, or rubs. ABDOMEN: Positive bowel sounds, soft, obese, positive hepatomegaly, nontender. EXTREMITIES: Upper extremities, good strength and radial pulses intact bilaterally. Lower extremity +3 bilateral [address]itting edema all the way to her knees. NEUROLOGICAL: No focal deficits noted. SKIN: The patient has some raw, moist, erythematous skin noted on the abdominal fold, nontender. ASSESSMENT: 1. Physical debility. 2. Diastolic congestive heart failure with severe lower extremity edema bilaterally. 3. Severe anemia, iron deficiency. 4. Status post left intertrochanteric fracture, status post open reduction and internal fixation, 05/07/2018. 5. Urinary retention with Ryan catheter. 6. Massive hepatomegaly, unknown etiology. 7. Liver cirrhosis. 8. Hepatitis C. 9. Chronic pain. PLAN: The patient is being admitted to [facility] swing bed for rehabilitation and gait strengthening. We will consult physical therapy for strengthening in order to gain modified independence with the gait. We will consult Occupational Therapy to help with activities of daily living prior to returning to her home. We will resume all home medications. We will monitor renal functions and CBC routinely. We would adjust medications as needed. We will manage pain with fentanyl patch and [place] as needed. We will place the patient on MiraLax to prevent constipation. We will place the patient on Protonix for gastrointestinal prophylaxis. We will monitor the patient closely for any medical comorbidities that may interfere with stay in a rehabilitation process. PCP to discuss possibility of hospice care again with the patient upon return to home. We will place patient on 1500 mL fluid restriction, and no sodium diet. We will change the patient's Ryan catheter out in am, and in a couple of days, decide if we can do a voiding trial. EXTENDED LENGTH OF STAY: 3-4 weeks. DISPOSITION: Home. CODE STATUS: The patient is a DNR. [facility]
[2018-05-18 17:03] LABS: Bilirubin Large (Negative); Blood, Urine Moderate (Negative); Glucose, Urine (Dipstick) Negative (Negative); Leukocyte Trace (Negative); Nitrite Negative (Negative); Protein, Urine (Dipstick) 100 mg/dL (Neg-Trace); Specific Gravity, Urine 1.015 (1.005-1.030); pH, Urine 5.5 (5.0-9.0)
[2018-05-18 17:13] LABS: Clarity Slightly Cloudy (Clear); RBC/HPF 21-50 HPF (0-3)
[2018-05-18 17:14] LABS: Bacteria/HPF 3+ HPF (None Seen)
[2018-05-18] MEDS: Zolpidem Tartrate 5 MG TAB PO SCH (20:53)
[2018-05-18] MEDS: Amitriptyline HCl 25 MG TAB PO SCH (20:53)
[2018-05-18] MEDS: Acetaminophen 325 MG TAB PO PRN (20:55)
[2018-05-18] MEDS ORDERED: Cyanocobalamin (Vitamin B-12) 1,000 MCG TAB PO SCH (21:00)
[2018-05-19] MEDS: Levothyroxine Sodium 25 MCG TAB PO SCH (05:42)
[2018-05-19] MEDS: HYDROcodone/Acetaminophen 10/325 mg Tablet PO PRN ×3 (06:00→21:12)
[2018-05-19] MEDS: Polyethylene Glycol 3350 17 GM Packet PO SCH (08:18)
[2018-05-19] MEDS: Cyclobenzaprine 10 MG TAB PO SCH ×3 (08:19→21:10)
[2018-05-19] MEDS: Furosemide 40 MG TAB PO SCH (08:20)
[2018-05-19] MEDS: ALPRAZolam 0.5 MG TAB PO SCH ×2 (08:20→23:50)
[2018-05-19] MEDS: Ferrous Sulfate 325 MG TAB PO SCH ×2 (08:20→17:12)
[2018-05-19] MEDS: Nystatin Powder 15 GM BOT TOP SCH ×2 (08:21→21:10)
[2018-05-19] MEDS ORDERED: fentaNYL 50 mcg/hour Patch TD SCH (09:00)
[2018-05-19] MEDS ORDERED: Sodium Chloride Irrig Solution 250 ML BOT ONE (10:27)
[2018-05-19] MEDS: Acetaminophen 325 MG TAB PO PRN ×2 (12:12→18:11)
[2018-05-19] MEDS: Mag-Al Plus 1200 MG/1200 MG/120 MG/30 ML UDCUP PO PRN (17:19)
[2018-05-19] MEDS ORDERED: ALPRAZolam 0.25 MG TAB ONE (20:59)
[2018-05-19] MEDS: Amitriptyline HCl 25 MG TAB PO SCH (21:10)
[2018-05-19] MEDS: Zolpidem Tartrate 5 MG TAB PO SCH (21:11)
[2018-05-19] MEDS ORDERED: ALPRAZolam 0.25 MG TAB PO SCH (21:15)
[2018-05-20] MEDS: Mag-Al Plus 1200 MG/1200 MG/120 MG/30 ML UDCUP PO PRN ×3 (01:45→21:07)
[2018-05-20] MEDS: HYDROcodone/Acetaminophen 10/325 mg Tablet PO PRN ×4 (05:11→23:27)
[2018-05-20] MEDS: Levothyroxine Sodium 25 MCG TAB PO SCH (05:11)
[2018-05-20 05:39] LABS: Anion Gap 15 mmol/L (10-20); BUN (Urea Nitrogen) 19 mg/dL (9.8-20.1); Calc. Creatinine Clearance 120 mL/min (70-130); Calcium 9.1 mg/dL (7.8-10.44); Carbon Dioxide 27 mmol/L (22-29); Chloride 97 mmol/L (98-107); Estimated GFR-MDRD 73; Glucose 94 mg/dL (70-105); Potassium 4.1 mmol/L (3.5-5.1); Sodium 135 mmol/L (136-145)
[2018-05-20 06:09] LABS: Anisocytosis SLIGHT = 6-15 cells (100X) (0-5/hpf); Band 1 % (5-11); Eosinophils 3 % (0-10); Hypochromia MODERATE=16-30 cells (100X) (0-5/hpf); Large Platelets SLIGHT; Lymphocytes 26 % (21-51); MDiff Complete? YES; Mean Corpuscular HGB CONC 30.8 g/dL (32.0-36.0); Mean Corpuscular Hemoglobin 26.7 pg (27.0-31.0); Mean Corpuscular Volume 86.6 fL (78.0-98.0); Mean Platelet Volume 9.8 fL (7.4-10.4); Monocytes 7 % (0-10); Neutrophil 58 % (42-75); PLT Morphology Comment Appears Increased; Platelet Count 506 thou/uL (130-400); Poikilocytosis SLIGHT = 6-15 cells (100X) (0-5/hpf); RBC Distribution Width 21.1 % (11.5-14.5); RBC Morphology Abnormal; Reactive Lymphocytes 5 % (0-10); Schistocytes SLIGHT = 2-5 cells (100X) (0-1/hpf); Target Cells MODERATE= 6-15 cells (100X) (0-1/hpf)
[2018-05-20] MEDS: Furosemide 40 MG TAB PO SCH (08:57)
[2018-05-20] MEDS: Cyclobenzaprine 10 MG TAB PO SCH ×3 (08:57→20:58)
[2018-05-20] MEDS: Ferrous Sulfate 325 MG TAB PO SCH ×2 (08:57→16:50)
[2018-05-20] MEDS: ALPRAZolam 0.5 MG TAB PO SCH ×2 (08:58→20:56)
[2018-05-20] MEDS: Nystatin Powder 15 GM BOT TOP SCH ×2 (08:58→21:01)
[2018-05-20] MEDS: Polyethylene Glycol 3350 17 GM Packet PO SCH (08:58)
[2018-05-20 12:56] LABS: White Blood Cell (WBC) Count 10.2 thou/uL (4.8-10.8)
[2018-05-20] MEDS ORDERED: fentaNYL 50 mcg/hour Patch TD SCH (14:00)
[2018-05-20] MEDS ORDERED: Polyethylene Glycol 3350 17 GM Packet PO PRN (17:09)
[2018-05-20] MEDS: Zolpidem Tartrate 5 MG TAB PO SCH (20:56)
[2018-05-20] MEDS: Amitriptyline HCl 25 MG TAB PO SCH (20:58)
[2018-05-20] MEDS: Cipro 250 MG TAB PO SCH (20:59)
[2018-05-21] MEDS: Levothyroxine Sodium 25 MCG TAB PO SCH (05:01)
[2018-05-21] MEDS: Cipro 250 MG TAB PO SCH (05:01)
[2018-05-21] MEDS ORDERED: Dextrose 50% Abboject 50 ML SYRINGE ONE ×2 (05:32→06:17)
[2018-05-21] MEDS ORDERED: Furosemide 40 MG/4 ML VIAL ONE (05:58)
[2018-05-21] MEDS ORDERED: Sodium Chloride 0.9% 20 ML ONE ×2 (06:00→06:18)
[2018-05-21] MEDS ORDERED: Dextrose 50% Abboject 50 ML SYRINGE SLOW IVP SCH (06:15)
[2018-05-21] MEDS ORDERED: methylPREDNISolone Sod Succ/PF 125 MG/2 ML VIAL IVP SCH (06:30)
[2018-05-21] MEDS ORDERED: Furosemide 40 MG/4 ML VIAL SLOW IVP SCH (06:45)
[2018-05-21] MEDS: Ferrous Sulfate 325 MG TAB PO SCH (08:08)
[2018-05-21] MEDS: Nystatin Powder 15 GM BOT TOP SCH ×3 (08:12→21:38)
[2018-05-21] MEDS: Cyclobenzaprine 10 MG TAB PO SCH (08:32)
[2018-05-21] MEDS: Furosemide 40 MG TAB PO SCH (08:32)
[2018-05-21] MEDS ORDERED: Morphine 4 MG/ML VIAL SLOW IVP PRN (08:41)
[2018-05-21] MEDS: ALPRAZolam 0.5 MG TAB PO SCH ×2 (08:45→21:36)
[2018-05-21] MEDS ORDERED: Morphine 4 MG/ML VIAL SLOW IVP SCH (08:45)
--- NOTE | 2018-05-21 09:10 | RAD ---
PORTABLE CHEST: Date: 05/21/18 HISTORY: Respiratory distress. COMPARISON: 05/10/18. FINDINGS: Heart size is enlarged. Parenchymal lung changes are stable. Right-sided MediPort catheter is unchang ed in position. IMPRESSION: Stable exam. POS: [facility]
[2018-05-21 09:22] LABS: Anion Gap 31 mmol/L (10-20)
[2018-05-21 09:30] LABS: Hemoglobin 7.4 g/dL (12.0-16.0); Mean Corpuscular HGB CONC 30.7 g/dL (32.0-36.0); Mean Corpuscular Hemoglobin 27.4 pg (27.0-31.0); Mean Corpuscular Volume 89.5 fL (78.0-98.0); Mean Platelet Volume 10.8 fL (7.4-10.4); Platelet Count 383 thou/uL (130-400); RBC Distribution Width 22.1 % (11.5-14.5); Red Blood Cell (RBC) Count 2.67 mill/uL (4.20-5.40); White Blood Cell (WBC) Count 10.7 thou/uL (4.8-10.8)
[2018-05-21 09:55] LABS: Anisocytosis SLIGHT = 6-15 cells (100X) (0-5/hpf); Band 10 % (5-11); Hypochromia MODERATE=16-30 cells (100X) (0-5/hpf); Lymphocytes 5 % (21-51); MDiff Complete? YES; Manual Diff?? YES; Monocytes 4 % (0-10); Neutrophil 81 % (42-75); Poikilocytosis MODERATE=16-30 cells (100X) (0-5/hpf)
[2018-05-21 09:56] LABS: PLT Morphology Comment Appears Adequate
[2018-05-21 09:59] LABS: Rouleaux Formation SLIGHT = 1-5 cells (100X) (None Seen)
[2018-05-21 10:31] LABS: ALT (SGPT) 39 U/L (8-55); AST (SGOT) 119 U/L (5-34); Albumin 1.8 g/dL (3.5-5.0); Alkaline Phosphatase 167 U/L (40-150); BUN (Urea Nitrogen) 21 mg/dL (9.8-20.1); Bilirubin, Total 2.4 mg/dL (0.2-1.2); Calc. Creatinine Clearance 64 mL/min (70-130); Calcium 8.9 mg/dL (7.8-10.44); Carbon Dioxide 12 mmol/L (22-29); Chloride 97 mmol/L (98-107); Estimated GFR-MDRD 35; Globulin 4.9 g/dL (2.4-3.5); Glucose 67 mg/dL (70-105); Potassium 4.2 mmol/L (3.5-5.1); Protein, Total 6.7 g/dL (6.0-8.3); Sodium 136 mmol/L (136-145)
[2018-05-21] MEDS: Morphine 4 MG/ML VIAL SLOW IVP PRN ×4 (13:26→23:08)
[2018-05-21 14:39] VITALS: BMI 36.7
[2018-05-21] MEDS: HYDROcodone/Acetaminophen 10/325 mg Tablet PO PRN ×2 (14:43→21:37)
[2018-05-21] MEDS: Zolpidem Tartrate 5 MG TAB PO SCH (21:36)
[2018-05-21] MEDS: Amitriptyline HCl 25 MG TAB PO SCH (21:36)
[2018-05-21] MEDS: Guaifenesin DM 100-10/5 ML UDCUP PO PRN (23:08)
[2018-05-22] MEDS: HYDROcodone/Acetaminophen 10/325 mg Tablet PO PRN ×4 (01:39→19:13)
[2018-05-22] MEDS: Morphine 4 MG/ML VIAL SLOW IVP PRN ×4 (05:28→18:21)
[2018-05-22] MEDS: Levothyroxine Sodium 25 MCG TAB PO SCH (05:28)
[2018-05-22] MEDS: ALPRAZolam 0.5 MG TAB PO SCH ×2 (07:58→20:40)
[2018-05-22] MEDS: Nystatin Powder 15 GM BOT TOP SCH ×2 (07:59→20:40)
[2018-05-22] MEDS: fentaNYL 50 mcg/hour Patch TD SCH (08:00)
[2018-05-22] MEDS: Guaifenesin DM 100-10/5 ML UDCUP PO PRN (12:50)
[2018-05-22] MEDS: Amitriptyline HCl 25 MG TAB PO SCH (20:40)
[2018-05-22] MEDS: Zolpidem Tartrate 5 MG TAB PO SCH (20:41)
[2018-05-23] MEDS: Morphine 4 MG/ML VIAL SLOW IVP PRN ×2 (03:36→08:15)
[2018-05-23] MEDS: Levothyroxine Sodium 25 MCG TAB PO SCH (05:20)
[2018-05-23] MEDS: HYDROcodone/Acetaminophen 10/325 mg Tablet PO PRN ×2 (06:26→16:13)
[2018-05-23] MEDS: ALPRAZolam 0.5 MG TAB PO SCH ×2 (08:10→20:43)
[2018-05-23] MEDS: Nystatin Powder 15 GM BOT TOP SCH ×2 (08:21→20:45)
[2018-05-23] MEDS: Guaifenesin DM 100-10/5 ML UDCUP PO PRN (16:14)
[2018-05-23] MEDS: Amitriptyline HCl 25 MG TAB PO SCH (20:43)
[2018-05-23] MEDS: Zolpidem Tartrate 5 MG TAB PO SCH (20:44)
[2018-05-23] MEDS: Morphine 10 MG/0.5 ML ORAL SYRINGE SL PRN (21:57)
[2018-05-24] MEDS: Levothyroxine Sodium 25 MCG TAB PO SCH (05:20)
[2018-05-24] MEDS: Morphine 10 MG/0.5 ML ORAL SYRINGE SL PRN (05:21)
[2018-05-24] MEDS: ALPRAZolam 0.5 MG TAB PO SCH ×2 (09:41→20:58)
[2018-05-24] MEDS: Nystatin Powder 15 GM BOT TOP SCH (09:42)
[2018-05-24] MEDS: Guaifenesin DM 100-10/5 ML UDCUP PO PRN (11:25)
[2018-05-24] MEDS ORDERED: diphenhydrAMINE 25 MG CAP PO PRN (18:19)
[2018-05-24] MEDS: Amitriptyline HCl 25 MG TAB PO SCH (20:58)
[2018-05-24] MEDS: Zolpidem Tartrate 5 MG TAB PO SCH (20:59)
[2018-05-24] MEDS: HYDROcodone/Acetaminophen 10/325 mg Tablet PO PRN (20:59)
[2018-05-24] MEDS: diphenhydrAMINE 25 MG CAP PO PRN (20:59)
[2018-05-25] MEDS: Levothyroxine Sodium 25 MCG TAB PO SCH (05:22)
[2018-05-25] MEDS: ALPRAZolam 0.5 MG TAB PO SCH ×2 (08:47→21:17)
[2018-05-25] MEDS: fentaNYL 50 mcg/hour Patch TD SCH (08:48)
[2018-05-25] MEDS: Morphine 10 MG/0.5 ML ORAL SYRINGE SL PRN (10:11)
[2018-05-25] MEDS: Guaifenesin DM 100-10/5 ML UDCUP PO PRN (12:08)
[2018-05-25] MEDS: HYDROcodone/Acetaminophen 10/325 mg Tablet PO PRN ×2 (13:33→21:19)
[2018-05-25] MEDS: diphenhydrAMINE 25 MG CAP PO PRN (13:34)
[2018-05-25] MEDS: Amitriptyline HCl 25 MG TAB PO SCH (21:17)
[2018-05-25] MEDS: Zolpidem Tartrate 5 MG TAB PO SCH (21:18)
[2018-05-26] MEDS: Levothyroxine Sodium 25 MCG TAB PO SCH (05:12)
[2018-05-26] MEDS: ALPRAZolam 0.5 MG TAB PO SCH ×3 (08:21→19:49)
[2018-05-26] MEDS: Morphine 10 MG/0.5 ML ORAL SYRINGE SL PRN ×3 (10:15→23:10)
[2018-05-26] MEDS: diphenhydrAMINE 25 MG CAP PO PRN (11:39)
[2018-05-26] MEDS: Zolpidem Tartrate 5 MG TAB PO SCH (19:49)
[2018-05-26] MEDS: Amitriptyline HCl 25 MG TAB PO SCH (19:49)
[2018-05-26] MEDS ORDERED: Betamethasone 0.1% Cream 15 GM TUBE TOP PRN (21:28)
[2018-05-27] MEDS: Levothyroxine Sodium 25 MCG TAB PO SCH (04:28)
[2018-05-27] MEDS: Morphine 10 MG/0.5 ML ORAL SYRINGE SL PRN ×8 (04:43→22:06)
[2018-05-27] MEDS: ALPRAZolam 0.5 MG TAB PO SCH ×2 (08:59→21:03)
[2018-05-27] MEDS: Lorazepam 1 MG TAB PO PRN ×2 (19:16→23:14)
[2018-05-27 20:02] VITALS: BP 92/55; TEMP 97.5
[2018-05-27] MEDS: Zolpidem Tartrate 5 MG TAB PO SCH (21:06)
[2018-05-27] MEDS: Amitriptyline HCl 25 MG TAB PO SCH (21:06)
[2018-05-28] MEDS: Morphine 10 MG/0.5 ML ORAL SYRINGE SL PRN (00:17)
[2018-05-28] MEDS ORDERED: Morphine 10 MG/0.5 ML ORAL SYRINGE SL PRN (02:04)
== END 2018-05-28 03:56 | disposition expired | DRG 559 ==
LOC: MADMS 18:53
PROVIDERS: ADMIT Family Medicine; ATTEND Family Medicine
DX: S72.142D Displaced intertrochanteric fracture of left femur, subsequent encounter for closed fracture with routine healing (principal); K72.00 Acute and subacute hepatic failure without coma; C34.90 Malignant neoplasm of unspecified part of unspecified bronchus or lung; I50.32 Chronic diastolic (congestive) heart failure; N39.0 Urinary tract infection, site not specified; E87.1 Hypo-osmolality and hyponatremia; R53.81 Other malaise; B19.20 Unspecified viral hepatitis C without hepatic coma; D50.9 Iron deficiency anemia, unspecified; Z51.5 Encounter for palliative care; G89.29 Other chronic pain; R16.0 Hepatomegaly, not elsewhere classified; F41.8 Other specified anxiety disorders; Z87.891 Personal history of nicotine dependence; Z66 Do not resuscitate; R33.9 Retention of urine, unspecified; K74.60 Unspecified cirrhosis of liver; Z92.21 Personal history of antineoplastic chemotherapy; E16.2 Hypoglycemia, unspecified; R06.03 Acute respiratory distress; I95.9 Hypotension, unspecified
CPT/HCPCS: 36415; 36416; 71045; 80048; 80053; 81001; 82140; 85025; 87077; 87086; 87186; 94640; A4216; G8978-GP-CM; G8979-GP-CJ; J1940; J1956; J2270; J2930; J7620